=== PATIENT | female | born 1950 | race Caucasian/White ===

== ENCOUNTER 2022-01-17 15:53 | Outpatient (CLI) | payer MEDICARE, SELFPAY ==
[2022-01-17 12:47] LABS: Albumin* 4.7 g/dL (3.3-5.0); Chloride* 101 mmol/L (96-114)
[2022-01-17 12:48] LABS: Potassium* 4.5 mmol/L (3.6-5.1); Sodium* 138 mmol/L (135-149)
[2022-01-17 12:50] LABS: Aspartate Amino Transferase* 28 U/L (12-35); Bilirubin Total* 0.4 mg/dL (0.1-1.5); Carbon Dioxide* 31 mmol/L (20-32); Cholesterol* 239 mg/dL (90-199); Creatinine* 0.9 mg/dL (0.5-1.5); Estimated Glomerular Filt Rate 69 ml/min; Total Protein* 7.1 g/dL (6.0-8.3)
[2022-01-17 12:51] LABS: Alanine Aminotransferase* 17 U/L (4-35); Alkaline Phosphatase* 58 U/L (40-150); Blood Urea Nitrogen* 17 mg/dL (7-30); Calcium* 10.5 mg/dL (8.4-10.6); Glucose* 97 mg/dL (60-115); HDL Cholesterol* 86 mg/dL (>=50); LDL Cholesterol Calculated 139 mg/dL (<100); Triglycerides* 71 mg/dL (40-149)
== END 2022-01-17 15:54 | disposition home or self-care (01) ==
PROVIDERS: PCP Family Medicine; Visit Provider Family Medicine
DX: Z00.00 Encounter for general adult medical examination without abnormal findings (principal); E78.5 Hyperlipidemia, unspecified; Z78.0 Asymptomatic menopausal state
CPT/HCPCS: 80053; 80061

== ENCOUNTER 2022-02-08 12:54 | Outpatient (CLI) | payer MEDICARE, SELFPAY ==
--- OUTSIDE RECORDS SUMMARY | 2022-02-08 12:57 | XMS_ITS | Clinical Summary ---
:1950 Author Organization [employer] [facility] [place] [address] Care Team Providers Name Role Phone Deb Galvez MD Primary Care Provider [phone] Allergies No known active allergies Medications Medication Sig Dispensed Refills Start Date End Date Status biotin 5,000 mcg TbDi Take 1 Tablet by 0 Active mouth. calcium citrate-vitamin Daily 0 Active D3 (CITRACAL WITH VITAMIN D PETITES) 200 mg-6.25 mcg (250 unit) tablet multivitamins with Daily 0 A ctive minerals tablet estradioL (ESTRACE) 0.5 As Directed 0 05/19/2020 Active mg tablet aspirin (ECOTRIN) 81 mg Daily 0 Active enteric coated tablet Active Problems Not on file Social History Tobacco Use Types Packs/Day Years Used Date Never Smoker Smokeless Tobacco: Never Used Sex Assigned at Date Recorded Not on file Obstetrics History Last Filed Vital Signs Vital Sign Reading Time Taken Comments Blood Pressure 100/61 10/12/2020 1:30 PM CDT Pulse 50 10/12/2020 1:30 PM CDT Temperature - - Respiratory Rate - - Oxygen Saturation 98% 10/12/2020 1:30 PM CDT Inhaled Oxygen Concentration - - Weight 57.2 kg (126 lb 3.2 oz) 10/12/2020 1:30 PM CDT Height - - Body Mass Index - - Plan of Treatment Health Maintenance Due Date Last Done Comments Tdap 10/25/1962 Depression screening for age 12+ 1963 BMI (ht and wt on same day) for age 18+ 10/25/1969 Hepatitis C screening for age 18-79 10/25/1969 Tetanus booster 1971 Colonoscopy through age 75 10/25/1996 Lipids for age 45-75 10/25/1996 Mammogram for age 45-75 10/25/1996 Zoster (shingles) series for age 50+ (1 of 10/25/2001 2) DEXA/DXA scan for age 65+ 10/25/2016 Medicare Wellness for age 65+ 10/25/2016 Pneumococcal series for age 65+ (1 - PCV) 10/25/2016 COVID-19 vaccine series (3 - Booster for 08/14/2020 021, 05/29/2020 Pfizer series) Influenza for age 65+ 12/01/2021 Results Not on filefrom Last 3 Months Insurance Payer Benefit Plan / Subscriber ID Effective Dates Phone Addre ss Type Group [facility] MR [id number] 2020-Present [address] [address] [place] [address] Care Teams Tubing Machine Operator Relationship Specialty Start Date End Date Deb Galvez MD PCP - General Family Practice 10/12/201999 [place] [address]
--- NOTE | 2022-02-08 13:00 | CRLHL7_ITS ---
For Patients: As a result of the Century Cures Act, medical imaging exams and procedure reports are released immediately into your electronic medical record. You may view this report before your referring provider. If you have questions, please contact your health care provider. DXA BONE MINERAL DENSITY STUDY Reason for exam: Screening. Current height (in): 63. Weight (lb): 126. Menopause age: 46. Ethnicity: White. 1. Have you had a previous hip or vertebral fracture? No. 2. Have you had any fractures during your adult life which did not result from significant trauma (e.g., auto accident)? No. 3. Did either of your parents have a hip fracture? No. 4. Do you smoke? No. 5. Have you ever taken Glucocorticoids? No. 6. Do you have rheumatoid arthritis? No. 7. Do you have secondary osteoporosis? No. 8. Do you drink 3 or more alcoholic drinks per day? No. 9. Are you being treated for osteoporosis? No. 10. Have you ever taken any of the following medications: Actonel, Evista, Fosamax, Miacalcin, Reclast, Boniva, Forteo, HRT (i.e. estrogen/hormone therapy), Protelos, Prolia, Vitamin D, Calcium, other ??? please specify. ANSWER: Yes, HRT, calcium. 11. Do you have any of the following medical conditions: Anorexia or bulimia, asthma or emphysema, end stage renal disease, hyperparathyroidism, any seizure disorders, cancer, inflammatory bowel diseases, hysterectomy, other ??? please specify. ANSWER: Yes, hysterectomy. 12. What was your maximum height (inches)? 64. 13. Do you perform weight bearing exercise regularly? Yes. 14. Do you regularly consume dairy products? Yes. 15. Do you drink caffeinated beverages? Yes. 16. At what age did your period start? 13. 17. Are you premenopausal? No. 18. How many full term pregnancies have you had? 2. 19. Have you ever missed your period for more than 6 months in a row (not including or menopause)? No. TECHNIQUE: Bone mineral density study was performed using the [employer]. FINDINGS: The results of the study expressed as bone mineral density (BMD) are as follows: Lumbar spine L1 to L4: BMD: 1.161 g/cm2. T-score: 1.0. Z-score: 3.2. Neck Left: BMD: 1.071 g/cm2. T-score: 2.0. Z-score: 3.8. Right: BMD: 1.000 g/cm2. T-score: 1.4. Z-score: 3.2. Total Left: BMD: 1.201 g/cm2. T-score: 2.1. Z-score: 3.6. Right: BMD: 1.192 g/cm2. T-score: 2.1. Z-score: 3.6. IMPRESSION: Normal bone density. *Comparison exams done prior to 09/2019 were performed on different unit, [employer]. Osmany Esparza M.D. Diagnostic/Nuclear Medicine Radiologist [email or web address] SHIRLEY/Dictated by: Osmany Esparza MD @ 02/08/2022 8:13:00 PM (Electronically Signed)
== END 2022-02-08 12:55 | disposition home or self-care (01) ==
LOC: RAD 12:55
PROVIDERS: PCP Family Medicine; Visit Provider Family Medicine
DX: Z13.820 Encounter for screening for osteoporosis (principal); Z78.0 Asymptomatic menopausal state
CPT/HCPCS: 77080

== ENCOUNTER 2023-02-26 12:00 | Outpatient (RCR) | payer MEDICARE, SELFPAY ==
--- NOTE | 2023-02-05 15:54 | OT.OPOE ---
OT Outpatient Ortho Eval OT Outpatient Ortho Eval* Start: 02/05/23 10:14 Freq: Status: Active Protocol: Document 02/05/23 10:16 RENAN (Rec: 02/05/23 11:34 RENAN [id number]) E-signed By Yazmin Langston OTR/L, CLT OT OP Ortho Eval Details Complexity Complexity Low Insurance Information Insurance Information [facility] Outpatient History/Precautions Current Condition/Medical Diagnosis Referring Provider Dr. Angela Galvez MD Treatment Diagnosis Pain of bilateral Hands, Muscle Weakness & M19.049 Unspecified osteoarthri Date of Onset Chronic, this past summer Other Conditions Medical: M19.041 & M19.042 Osteoarthritis of bilateral Hands & Bilateral carpal tunnel syndrome G56.03 - Carpal tunnel syndrome, bilateral upper limbs Medical/Functional History Medical History Reviewed Yes Prior Level of Function/Mobility Patient fully Indep with ADLs/ IADLs, driving and active with regular exercise (staying busy and active) Social History Employment Status Retired Current Occupation Retired Other Critical Job Demands , retired seamstress, 2 adult children, nonsmoker, healthy & active Hobbies Gardening, Biking with [email or web address] Walking and Biking Ortho Subjective Subjective Subjective Usually taking 200 mg of Ibuprofen during the day to help with pain I started wearing bilateral hand splints for the last month and this has helped I wouldn't be able to wear the wrist splints while I'm biking Pain Assessment Pain Present Pain Present Pain Reported Location Bilateral Hand Description Dull, Achy,Throbbing,With Movement Intensity 3 Range of Motion and Strength Hand/Finger/Thumb Range of Motion and Strength Hand/Finger/Thumb Range of Motion and Deformities of the DIP joints Strength on both hands, collapsed thumb joints with L worse than R Hands: Normal radial and ulnar pulses. She has a full range of motion of her shoulders and elbows. On her fingers there is multiple Heberden's nodes and Tonya's nodes consistent with osteoarthritis. Worse pain in the DIP joints ( which are the joints that the joint deformities are worse) Extremities: No pitting edema , good peripheral pulses. Hand Pinch/Gallery [employer] Museum Guide Strength Hand Left Gallery [employer] Museum Guide Strength Position 1 (lbs) 35 Gallery [employer] Museum Guide Strength Position 2 (lbs) 36 Lateral Pinch Strength (lbs) 11 Three Point Pinch (lbs) 10 Tip Pinch Strength (lbs) 6 Right Gallery [employer] Museum Guide Strength Position 1 (lbs) 30 Gallery [employer] Museum Guide Strength Position 2 (lbs) 32 Lateral Pinch Strength (lbs) 10 Three Point Pinch (lbs) 10 Tip Pinch Strength (lbs) 6 OT Problems Problems Problems Decreased Strength,Decreased Range of Motion,Decreased Dexterity,Pain,Decreased Coordination,Lifting,Gripping, Pinching Problems Comments Difficulty with fine motor and coordination, I'm dropping things Other Problems Writing,Opening Containers, Dressing,Computer Patient Potential Good Assessment Assessment Assessment 72 years old (L hand dominant) female presents to the clinic with dx from PCP for bilateral Osteoarthritis as well as bilateral Carpal Tunnel Syndrome which she has an apt with ORTHO next week. Symptoms have been chronic, but patient reports worsening pain/discomfort since the summer when she was doing a lot of biking and gardening. She reports difficulty with fine motor and coordination, I'm dropping things and upon taking trolley coach driver and pinch strengths, her values are below the norms for gender and age categories. Rehab potential is good as patient can cognitively understand instructions, is willing to make modifications and work on a HEP and is motivated and willing to put in the work to improve her symptoms. Occupational Therapy Treatment Plan - OP Potential Rehabilitation Potential Good Barriers Barriers to goal attainment Arthritis has no cure, chronic condition that is tried through management of symptoms and activity modifications. Set Goals Goals Set with Patient Yes Goals Goals 1. Through activity participation in skilled therapy sessions, and consistency in performing a customized HEP, patient will improve capacity of tendons, joints and muscles to manage load in order to have less pain with ADLs, work, leisure activities and IADLs. 2. Patient will increase trolley coach driver strength in the L (dominant UE ) from 35 pounds to >40 lbs in order to not have fear in dropping items in her kitchen when meal prepping. 3. Patient will improve Lateral (thumb) pinch in the L hand from 11 lbs to >12 lbs w /o increased pain in order to use her hand to open doors. 4. With patient attending therapy sessions 1-2x/week, therapist will use modalities & manual treatment allowing patient to have increased active movement (without increased pain symptoms) when participating in leisure activities (biking and gardening). 5. Patient will verbalize 3 activity modifications to decrease abusive/overloading of the muscles, joints & tendons of bilateral hands. Target Date 8 weeks Treatment Plan Treatment Plan Evaluation,Edema Control,Joint Mobilization,Manual Therapy, Ultrasound,Therapeutic Exercise,Education Expected Frequency 1-2x Week Expected Duration 8-10 Weeks Home Program Home Program Home Program Initiated Home Program Specifics Handouts given today: Ergo products: electric jar openers , bottle and lid openers, adjustable hair preparer stand ( ames for blow dryer) Certification Certification I Certify That: Therapy Services Provided, Therapy Plan Established, Therapy Plan Reviewed Recertification Information Recertification Information Initial Certification Date 02/05/23 Recertification Due Date 05/06/23 Provider Signature Shows Agreement With POC & Medical Necessity Physician Comment/Change Comment or Changes Physician NPI Number #
== END 2023-02-28 17:33 | disposition home or self-care (01) ==
PROVIDERS: PCP Family Medicine; Visit Provider Family Medicine
DX: M19.041 Primary osteoarthritis, right hand (principal); M19.042 Primary osteoarthritis, left hand; Z51.89 Encounter for other specified aftercare
CPT/HCPCS: 97110; 97165; 97535; X5282

== ENCOUNTER 2023-03-05 08:08 | Outpatient (CLI) | payer MEDICARE, SELFPAY | END 2023-03-05 08:09 | disposition home or self-care (01) | LOC: NFLDREF 03-07 07:17 | PROVIDERS: PCP Family Medicine; Referring Provider Family Medicine; Visit Provider Family Medicine | DX: E78.5 Hyperlipidemia, unspecified (principal) | CPT/HCPCS: 80053; 80061 ==

== ENCOUNTER 2023-04-19 07:24 | Day surgery (SDC) | payer MEDICARE, SELFPAY ==
[2023-04-19] VITALS (8 sets, daily range): BP systolic 112–140; BP diastolic 63–77; PULSE 59–76; RESP 16; TEMP 36.6; O2SAT 96–100; BMI 23.3
--- OUTSIDE RECORDS SUMMARY | 2023-04-19 07:27 | XMS_ITS | Clinical Summary ---
Author Name Unknown Organization [employer] [facility] Address [place] [address] Care Team Providers Care Tool Designer Apprentice Name Role Phone Deb Galvez MD Primary Care Provider + Allergies No known active allergies Medications Medication Sig Dispensed Refills Start Date End Date Status biotin 5,000 mcg TbDi Take 1 Tablet by mouth. 0 Active calcium citrate-vitamin D3 (CITRACAL WITH VITAMIN D PETITES) 200 mg-6.25 mcg (250 unit) tablet Daily 0 Active multivitamins with minerals tablet Daily 0 Active estradioL (ESTRACE) 0.5 mg tablet As Directed 0 05/19/2020 Active aspirin (ECOTRIN) 81 mg enteric coated tablet Daily 0 Active Social History Tobacco Use Types Packs/Day Years Used Date Smoking Tobacco: Never Smokeless Tobacco: Never Sex and Gender Information Value Date Recorded Sex Assigned at Not on file Gender Identity Not on file Sexual Orientation Not on file Obstetrics History Last Filed Vital Signs Vital Sign Reading Time Taken Comments Blood Pressure 100/61 10/12/2020 1:30 PM CDT Pulse 50 10/12/2020 1:30 PM CDT Temperature - - Respiratory Rate - - Oxygen Saturation 98% 10/12/2020 1:30 PM CDT Inhaled Oxygen Concentration - - Weight 57.2 kg (126 lb 3.2 oz) 10/12/2020 1:30 P M CDT Height - - Body Mass Index [...] (shingles) series for age 50+ (1 of 2) 10/25/2001 DEXA/DXA scan for age 65+ 10/25/2016 Medicare Wellness for age 65+ 10/25/2016 Pneumococcal series for age 65+ (1 of 1 - PCV) 10/25/2016 COVID-19 vaccine series ( season) 2022 06/19/2020, 05/29/2020 Influenza for age 65+ 12/01/2022 Care Teams Tool Designer Apprentice Relationship Specialty Start Date End Date Deb Galvez MD [address] [place] [address] PCP - General Family Practice 10/12/20
[2023-04-19] MEDS: lidocaine HCL 2 % MULTIDOSE 20 ML VIAL INJECTION (08:57)
[2023-04-19] MEDS: BUPIVACAINE 0.5% 30 ML INJECTION (08:57)
--- NOTE | 2023-04-19 09:10 | P.ORPRC_ITS ---
Procedure Note Date of procedure: 04/19/23 Procedure: Preop diagnosis: Left upper extremity carpal tunnel syndrome Postop diagnosis: Left upper extremity carpal tunnel syndrome Procedure: Left upper extremity carpal tunnel release Anesthesia: Local Surgeon: Ishan Boyce MD web production assistant: FRIDA Rodriguez EBL: 5 mL Complications: None Specimens: None Drains: None Indications: The patient has a history of left upper extremity carpal tunnel syndrome symptoms. Despite appropriate nonoperative management consisting of nighttime bracing and occupational therapy they continue to have symptoms. Operative intervention was recommended. The risks, benefits alternatives and expected outcomes were discussed in detail. These included but were not limited to: Infection, bleeding, injury to blood vessel or nerve, venous thromboembolism. All questions were answered to their satisfaction. The patient was placed supine on the operating room table. Local anesthesia was established with 0.5% Marcaine without epinephrine and 2% lidocaine without epinephrine. The hand was prepped and draped in usual sterile fashion. The limb was elevated the forearm pneumatic tourniquet was inflated to 250 mm of mercury. A longitudinal incision was made centered over the radial border of the ring finger at the base of the palm. Subcutaneous dissection was sharply taken through the palmar fascia and the palmaris brevis to the transverse carpal ligament. The ligament was divided in line with the incision. Proximal and distal dissection was carried with tenotomy and Metzenbaum scissors for a wide decompression of the carpal tunnel. The tourniquet was released, bleeding was controlled with direct pressure. The wound was closed with a 3-0 nylon. A bulky dry dressing was applied, sponge and needle counts were correct x 2. The patient tolerated the procedure well, there were no apparent complications. They were sent to same day surgery in satisfactory condition. Plan: Use of the hand as tolerates. Discontinue the intraoperative dressing on postoperative day 3 and may get the wound wet as tolerates. Follow up in the office in 2 weeks for a wound check and suture removal.
== END 2023-04-19 09:44 | disposition home or self-care (01) ==
PROVIDERS: PCP Family Medicine; Visit Provider Orthopaedic Surgery
PROC: (CPT 64721; principal; 2023-04-19 08:45)
DX: G56.02 Carpal tunnel syndrome, left upper limb (principal)
CPT/HCPCS: 64721; J0665

== ENCOUNTER 2023-05-22 06:14 | Day surgery (SDC) | payer MEDICARE, SELFPAY ==
[2023-05-22] VITALS (8 sets, daily range): BP systolic 115–153; BP diastolic 65–76; PULSE 63–76; RESP 16–18; TEMP 36.5; O2SAT 96–100; BMI 22.1
--- OUTSIDE RECORDS SUMMARY | 2023-05-22 06:15 | XMS_ITS | Clinical Summary ---
Author Name Unknown Organization [employer] [facility] Address [place] [address] Care Team Providers Care Pararescue Manager Name Role Phone Deb Galvez MD Primary [...] Influenza for age 65+ 12/01/2022 Care Teams Pararescue Manager Relationship Specialty Start Date End Date Deb Galvez MD [address] [place] [address] PCP - General Family Practice 10/12/20
[2023-05-22] MEDS: BUPIVACAINE 0.5% 30 ML INJECTION (07:25)
[2023-05-22] MEDS: lidocaine HCL 2 % MULTIDOSE 20 ML VIAL INJECTION (07:25)
--- NOTE | 2023-05-23 12:07 | PM.ORPRC ---
Procedure Note Date of procedure: 05/22/23 Procedure: Preop diagnosis: Right upper extremity carpal tunnel syndrome Postop diagnosis: Right upper extremity carpal tunnel syndrome Procedure: Right upper extremity carpal tunnel release Anesthesia: Local Surgeon: Ishan Boyce MD purchasing assistant: PREET Porter EBL: 5 mL Complications: None Specimens: None Drains: None Indications: The patient has a history of right upper extremity carpal tunnel syndrome symptoms. Despite appropriate nonoperative management consisting of nighttime bracing and occupational therapy they continue to have symptoms. Operative intervention was recommended. The risks, benefits alternatives and expected outcomes were discussed in detail. These included but were not limited to: Infection, bleeding, injury to blood vessel or nerve, venous thromboembolism. All questions were answered to their satisfaction. The patient was placed supine on the operating room table. Local anesthesia was established with 0.5% Marcaine without epinephrine and 2% lidocaine without epinephrine. The hand was prepped and draped in usual sterile fashion. The limb was elevated the forearm pneumatic tourniquet was inflated to 250 mm of mercury. A longitudinal incision was made centered over the radial border of the ring finger at the base of the palm. Subcutaneous dissection was sharply taken through the palmar fascia and the palmaris brevis to the transverse carpal ligament. The ligament was divided in line with the incision. Proximal and distal dissection was carried with tenotomy and Metzenbaum scissors for a wide decompression of the carpal tunnel. The tourniquet was released, bleeding was controlled with direct pressure. The wound was closed with a 3-0 nylon. A bulky dry dressing was applied, sponge and needle counts were correct x 2. The patient tolerated the procedure well, there were no apparent complications. They were sent to same day surgery in satisfactory condition. Plan: Use of the hand as tolerates. Discontinue the intraoperative dressing on postoperative day 3 and may get the wound wet as tolerates. Follow up in the office in 2 weeks for a wound check and suture removal.
== END 2023-05-22 08:07 | disposition home or self-care (01) ==
PROVIDERS: PCP Family Medicine; Visit Provider Orthopaedic Surgery
PROC: (CPT 64721; principal; 2023-05-22 07:15)
DX: G56.01 Carpal tunnel syndrome, right upper limb (principal)
CPT/HCPCS: 64721; J0665

== ENCOUNTER 2023-09-03 08:01 | Outpatient (CLI) | payer MEDICARE, SELFPAY ==
--- OUTSIDE RECORDS SUMMARY | 2023-09-03 08:03 | XMS_ITS | Clinical Summary ---
Author Organization [employer] [facility] Address [place], [place] [address] Care Team Providers Care Vamp Wetter Name Role Phone Deb Galvez MD Primary Care Provider + Allergies No known active allergies Medications Medication Sig Dispensed Refills Start Date End Date Status biotin 5,000 mcg TbDi Take 1 Tablet by mouth. Active calcium citrate-vitamin D3 (CITRACAL WITH VITAMIN D PETITES) 200 mg-6.25 mcg (250 unit) tablet Daily Active multivitamins with minerals tablet Daily Active estradioL (ESTRACE) 0.5 mg tablet As Directed 05/19/2020 Active aspirin (ECOTRIN) 81 mg enteric coated tablet Daily Active Social History Tobacco Use Types Packs/Day [...] 1 - PCV) 10/25/2016 COVID-19 vaccine series (3 - 2022- season) 2022 06/19/2020, 05/29/2020 Influenza for age 65+ 12/02/2023 Care Teams Vamp Wetter Relationship Specialty Start Date End Date Deb Galvez MD [address] [place] [address] PCP - General Family Practice 10/12/20
--- NOTE | 2023-09-03 08:15 | CRLHL7_ITS ---
For Patients: As a result of the Century Cures Act, medical imaging exams and procedure reports are released immediately into your electronic medical record. You may view this report before your referring provider. If you have questions, please contact your health care provider. BILATERAL SCREENING MAMMOGRAM WITH COMPUTER-AIDED DETECTION AND TOMOSYNTHESIS TECHNIQUE: CC and MLO views were obtained. These mammographic images have been obtained using full-field digital technique. These mammographic images were interpreted with the benefit of computer-aided detection. Breast Tomosynthesis was used in this interpretation. COMPARISON FILM: 08/29/22, 08/26/21, 07/26/20. FINDINGS: The breasts are heterogeneously dense, which may obscure small masses. IMPRESSION: There is no radiographic evidence for malignancy. ASSESSMENT: BI-RADS Category 2: Benign RECOMMENDATION: Routine screening mammogram in 1 year. A lay language report of this examination will be provided to the patient. Meng Neves M.D. Diagnostic Radiologist [email or web address] SP/Dictated by: Meng Neves MD @ 09/04/2023 10:16:00 AM (Electronically Signed)
== END 2023-09-03 08:02 | disposition home or self-care (01) ==
LOC: MAMMO 08:02
PROVIDERS: PCP Family Medicine; Visit Provider Family Medicine
DX: Z12.31 Encounter for screening mammogram for malignant neoplasm of breast (principal); R92.2 Inconclusive mammogram
CPT/HCPCS: 77063; 77067

== ENCOUNTER 2024-03-31 08:31 | Outpatient (CLI) | payer MEDICARE, SELFPAY | END 2024-03-31 08:32 | disposition home or self-care (01) | LOC: NFLDREF 04-01 11:38 | PROVIDERS: PCP Family Medicine; Referring Provider Family Medicine; Visit Provider Family Medicine | DX: E78.5 Hyperlipidemia, unspecified (principal) | CPT/HCPCS: 80053; 80061 ==

== ENCOUNTER 2024-06-16 08:16 | Outpatient (CLI) | payer MEDICARE, SELFPAY | END 2024-06-16 08:17 | disposition home or self-care (01) | LOC: NFLDREF 06-17 04:01 | PROVIDERS: PCP Family Medicine; Referring Provider Family Medicine; Visit Provider Family Medicine | DX: B35.1 Tinea unguium (principal); Z79.899 Other long term (current) drug therapy | CPT/HCPCS: 80053; 80061 ==

== ENCOUNTER 2024-11-14 09:52 | Outpatient (CLI) | payer MEDICARE, SELFPAY ==
--- NOTE | 2024-11-14 10:15 | CRLHL7_ITS ---
For Patients: As a result of the Century Cures Act, medical imaging exams and procedure reports are released immediately into your electronic medical record. You may view this report before your referring provider. If you have questions, please contact your health care provider. INDICATION: BILATERAL SCREENING MAMMOGRAM, ASYMPTOMATIC 74 Y/O FEMALE COMPARISON: 09/03/2023, 08/29/2022, 08/26/2021 TECHNIQUE: Digital mammogram in CC and MLO projections including computer-aided detection (CAD) and tomosynthesis. BREAST COMPOSITION: The breasts are heterogeneously dense, which may obscure small masses. FINDINGS: No suspicious findings. ASSESSMENT: BI-RADS 1 Negative RECOMMENDATION: Annual screening mammogram. A lay language report of this examination will be provided to the patient. Dictated by: Meng Neves MD @ 11/14/2024 11:00:39 (Electronically Signed)
== END 2024-11-14 09:53 | disposition home or self-care (01) ==
LOC: MAMMO 09:53
PROVIDERS: PCP Family Medicine; Visit Provider Family Medicine
DX: Z12.31 Encounter for screening mammogram for malignant neoplasm of breast (principal); R92.333 Mammographic heterogeneous density, bilateral breasts
CPT/HCPCS: 77063; 77067